=== PATIENT | female | born 1995 | race Caucasian/White ===

== ENCOUNTER 2018-09-22 08:49 | Emergency (ER) | payer MEDICAID ==
[2018-09-22] MEDS ORDERED: Ketorolac 30 MG/ML SDV ONE (09:17)
[2018-09-22] MEDS ORDERED: Ketorolac 60 MG/2 ML SDV IM SCH (09:30)
--- NOTE | 2018-09-22 10:07 | EDM.PDOC ---
ED HPI GENERAL MEDICAL PROBLEM - General Chief Complaint: Upper Extremity Injury/Pain Stated Complaint: toothache Time Seen by Provider: 09/22/18 08:55 Source of Information: Reports: Patient, RN History Limitations: Reports: No Limitations - History of Present Illness INITIAL COMMENTS - FREE TEXT/NARRATIVE: 23 yr female presents to ER with dental pain and neck pain. States she has seen the dentist and needs to schedule another appointment to have the wisdom teeth extracted. No swelling noted to gum and gum is pink in color. States she took pain medicine during night and today and has been using a heating pad for this. Treatments [employer]: Reports: Acetaminophen Left Jaw Pain Score (Numeric/FACES): 7 - Related Data Allergies Allergy/AdvReac Type Severity Reaction Status Date / Time No Known Allergies Allergy Verified 09/22/18 08:58 Home Meds: Home Meds NK [No Known Home Meds] 09/22/18 [History] Review of Systems - Review of Systems Review Of Systems: See Below Constitutional: Reports: No Symptoms Eyes: Reports: No Symptoms ED EXAM, GENERAL - Physical Exam Exam: See Below Exam Limited By: No Limitations General Appearance: Alert, No Apparent Distress Ears: Hearing Grossly Normal Nose: Normal Inspection Throat/Mouth: Normal Voice, No Airway Compromise Head: Atraumatic, Normocephalic. No: Facial Swelling Neck: Supple, Non-Tender, Full Range of Motion Respiratory/Chest: No Respiratory Distress Neurological: Alert, Oriented, Normal Cognition Psychiatric: Normal Affect, Normal Mood, Tearful Skin Exam: Warm, Dry, Normal Color Lymphatic: No Adenopathy Course - Vital Signs Last Recorded V/S: Last Vital Signs Temp 99 F 09/22/18 09:39 Pulse 83 09/22/18 09:39 Resp 16 09/22/18 09:39 BP 135/83 09/22/18 09:39 Pulse Ox 100 09/22/18 09:39 - Orders/Labs/Meds Meds: Medications Discontinued Medications Generic Name Dose Route Start Last Admin Trade Name Freq PRN Reason Stop Dose Admin Ketorolac Tromethamine Confirm 09/22/18 09:17 09/22/18 09:26 Toradol Administered 09/22/18 09:18 30 mg Dose Administration 30 mg .ROUTE .STK-MED ONE Ketorolac Tromethamine 30 mg 09/22/18 09:30 Toradol IM 09/27/18 09:[address] [facility] Departure - Departure Time of Disposition: 09:30 Disposition: Home, Self-Care 01 Condition: Good Clinical Impression: Pain, dental - Discharge Information Instructions: Acetaminophen; Hydrocodone tablets or capsules, Ibuprofen tablets and capsules, Acetaminophen tablets or caplets Referrals: PCP,None [Primary Care Provider] - Forms: ED Department Discharge Care Plan Goals: Instructed to alternate Ibuprofen 600mg, Take at 8, 2am and 10pm if pain not controlled and Take tylenol 500mg 3 x day at 10a, 4pm, 12 midnight. Take hydrocodone/APAP 5/325 one tablet every 8 hours as needed for pain. Use heat or cold, whichever feels best to area 20 minutes of an hour every 3 to 4 hours. When making an appointment with oral surgeon, ask if they want you on antibiotics first, prior to appointment You have had a ketorlac injection so wait until bedtime before using motrin or ibuprofen Make appointment with oral surgeon to have teeth removed. - Assessment/Plan Plan: Acute dental pain: Recommend follow-up with dentist of choice. No acute erythema noted to gum, no swelling noted. Bottom molar starting to show through gum. Recommend to continue with good dental hygiene. Recommend to continue with alternating Tylenol and Ibuprofen for relief of pain. Rx for Vicoden given. Toradol IM given for relief of pain. May use/alternate heat and cold to jaw for comfort as needed. Follow-up with dentist/oral surgeon.
== END 2018-09-22 09:30 | disposition home or self-care (01) ==
LOC: LB.ED 08:49
DX: K08.89 Other specified disorders of teeth and supporting structures (principal)
CPT/HCPCS: 99282; J1885

== ENCOUNTER 2018-11-05 10:58 | Emergency (ER) | payer MEDICAID ==
--- NOTE | 2018-11-05 11:26 | EDM.PDOC ---
ED HPI GENERAL MEDICAL PROBLEM - General Stated Complaint: TOOTH PAIN Time Seen by Provider: 11/05/18 11:10 Source of Information: Reports: Patient History Limitations: Reports: No Limitations - History of Present Illness INITIAL COMMENTS - FREE TEXT/NARRATIVE: Pt is sitting in the emergency room very tearful and upset. She claims she has pain in her left upper wisdom tooth for several months. She was seen by her dentist 3 months and referred out to a different dentist , who again has referred her to another one. She claims she has had pain for more then 3 months now and she is in pain and needs pain meds now. ( pt is very demanding).When asked what she has been on for pain meds in the past 3 months she says nothing. He uses OTC ambusol for pain. When asked how is her pain different today then other days, what did she do. Pt gets upset. No swelling of the face. No fever or chills. Severity: Severe Improves with: Reports: None Worsens with: Reports: None Associated Symptoms: Denies: Confusion, Chest Pain, Cough, Diaphoresis, Fever/ Chills, Headaches, Nausea/Vomiting, Rash, Seizure, Shortness of Breath, Syncope , Weakness - Related Data Allergies Allergy/AdvReac Type Severity Reaction Status Date / Time No Known Allergies Allergy Verified 09/22/18 08:58 Home Meds: Home Meds NK [No Known Home Meds] 09/22/18 [History] ED ROS GENERAL - Review of Systems Review Of Systems: See Below Constitutional: Denies: Fever, Chills HEENT: Reports: Dental Pain. Denies: Nose Pain, Throat Pain, Vision Change Respiratory: Denies: Shortness of Breath, Pleuritic Chest Pain, Cough, Sputum Cardiovascular: Denies: Chest Pain, Lightheadedness GI/Abdominal: Denies: Abdominal Pain, Nausea, Vomiting : Denies: Dysuria, Frequency Musculoskeletal: Denies: Joint Pain, Joint Swelling Skin: Denies: Bruising, Pruritis, Rash Neurological: Denies: Confusion, Dizziness, Headache, Numbness, Tingling Psychiatric: Denies: Agitation, Anxiety, Confusion ED EXAM, GENERAL - Physical Exam Exam: See Below Exam Limited By: No Limitations General Appearance: Alert, WD/WN, Other (crying out loud and tearful) Eye Exam: Bilateral Eye: EOMI, PERRL Ears: Normal External Exam, Normal Canal, Hearing Grossly Normal, Normal TMs Nose: Normal Inspection, Normal Mucosa, No Blood Throat/Mouth: Other (Oral Exam: all the teeth appear normal. There is no gingivitis or gingival inflammation. there is a partially erupted tooth in the left upper quadrant , posterior to the molar. There is no erythema or mucosal swelling.) Head: Atraumatic, Normocephalic Neck: Normal Inspection, Supple, Non-Tender, Full Range of Motion Respiratory/Chest: No Respiratory Distress, Lungs Clear, Normal Breath Sounds, No Accessory Muscle Use, Chest Non-Tender Cardiovascular: Normal Peripheral Pulses, Regular Rate, Rhythm, No Edema, No Gallop, No JVD, No Murmur, No Rub Course - Vital Signs Text/Narrative:: Apparently patient is here crying and upset about her tooth ache. there is no facial selling. There is no gingival inflammation in the area of the pain. The tooth is not appearing to have caries or root exposure. I do not see any acute cause of her severe pain. Pt gets upset to answer simple questions like ,How long have you had pain? Do you have a dentist? Have you called your dentist?. these are the questions normally asked in the medical visit. She refuses to have Blood drawn for CBC. Patient is upset about something hard to understand. She says she will not get blood work for her tooth pain and signed AMA and went to [facility]. Departure - Departure Time of Disposition: 11:30 Disposition: Against Medical Advice 07 Clinical Impression: Pain, dental - Discharge Information *PRESCRIPTION DRUG MONITORING PROGRAM REVIEWED*: Not Applicable *COPY OF PRESCRIPTION DRUG MONITORING REPORT IN PATIENT BREEZY: Not Applicable Referrals: PCP,None [Primary Care Provider] - - Problem List & Annotations (1) Pain, dental SNOMED Code(s): 46220607 Code(s): K08.89 - OTHER SPECIFIED DISORDERS OF TEETH AND SUPPORTING STRUCTURES Status: Acute Current Visit: Yes - Problem List Review Problem List Initiated/Reviewed/Updated: Yes - Assessment/Plan Assessment:: dental pain Plan: Apparently patient is here crying and upset about her tooth ache. there is no facial selling. There is no gingival inflammation in the area of the pain. The tooth is not appearing to have caries or root exposure. I do not see any acute cause of her severe pain. Pt gets upset to answer simple questions like ,How long have you had pain? Do you have a dentist? Have you called your dentist?. these are the questions normally asked in the medical visit. She refuses to have Blood drawn for CBC. Patient is upset about something hard to understand. She says she will not get blood work for her tooth pain and signed AMA and went to [facility].
== END 2018-11-05 11:20 | disposition left against medical advice (07) ==
LOC: LB.ED 10:58
DX: K08.89 Other specified disorders of teeth and supporting structures (principal)
CPT/HCPCS: 99282

== ENCOUNTER 2023-04-27 07:54 | Emergency (ER) | payer MEDICAID | END 2023-04-27 08:36 | disposition home or self-care (01) | LOC: LB.ED 07:54 | DX: M79.2 Neuralgia and neuritis, unspecified (principal); H61.22 Impacted cerumen, left ear; F17.210 Nicotine dependence, cigarettes, uncomplicated | CPT/HCPCS: 99283 ==

== ENCOUNTER 2023-09-10 09:39 | Emergency (ER) | payer MEDICAID ==
[2023-09-10] MEDS: methylPREDNISolone Sodium Succinate 125 MG/2 ML SDV IM ONE (10:29)
== END 2023-09-10 10:34 | disposition home or self-care (01) ==
LOC: LB.ED 09:39
DX: L23.7 Allergic contact dermatitis due to plants, except food (principal); Z87.891 Personal history of nicotine dependence
CPT/HCPCS: 96372; 99283; J2919

== ENCOUNTER 2023-11-15 03:29 | Emergency (ER) | payer MEDICAID, OTHER ==
[2023-11-15] MEDS ORDERED: Sodium Chloride 0.9% 10 ML Syringe FLUSH PRN (03:43)
[2023-11-15 03:56] LABS: BASOPHILS ABSOLUTE AUTO 0.04 K/uL (0.02-0.10); BASOPHILS PERCENT AUTO 0.5 % (0.0-0.5); EOSINOPHILS ABSOLUTE AUTO 0.14 K/uL (0.04-0.40); EOSINOPHILS PERCENT AUTO 1.7 % (1.0-5.0); HEMOGLOBIN 13.4 g/dL (11.5-16.5); LYMPHOCYTES ABSOLUTE AUTO 2.79 K/uL (1.50-4.00); LYMPHOCYTES PERCENT AUTO 33.8 % (20.0-40.0); MEAN CORPUSCULAR HEMOGLOBIN 31.2 pg (27.0-32.0); MEAN CORPUSCULAR HGB CONC 34.4 g/dL (31.0-35.0); MEAN CORPUSCULAR VOLUME 91 fL (76-96); MEAN PLATELET VOLUME 9.9 fL (6.0-10.0); MONOCYTES ABSOLUTE AUTO 0.99 K/uL (0.20-0.80); PLATELET COUNT,PLT 270 K/uL (150-500); RED BLOOD CELL COUNT 4.29 M/uL (3.80-5.80); RED CELL DISTRIBUTION WIDTH 12.9 % (11.0-16.0); WHITE BLOOD CELL COUNT,WBC 8.3 K/uL (4.0-11.0)
[2023-11-15 04:06] LABS: ALBUMIN 3.6 g/dL (3.4-5.0); ANION GAP 15.5 mmol/L (5.0-15.0); BILIRUBIN TOTAL 0.2 mg/dL (0.0-1.0); BUN/CREATININE RATIO 17.1 (6-25); CALCIUM 8.6 mg/dL (8.5-10.1); CARBON DIOXIDE,CO2 21.4 mmol/L (21.0-32.0); CREATININE 0.82 mg/dL (0.55-1.02); EST CRCL DRUG DOSING (CG) 132.89 mL/min; POTASSIUM,K 3.9 mmol/L (3.5-5.1); PROTEIN TOTAL,TP 7.3 g/dL (6.4-8.2)
[2023-11-15 04:39] LABS: AMPHETAMINES SCREEN, URINE NEGATIVE (NEGATIVE); BARBITURATE SCREEN,URINE NEGATIVE (NEGATIVE); BENZODIAZEPINES SCREEN,URINE NEGATIVE (NEGATIVE); METHADONE SCREEN, URINE NEGATIVE (NEGATIVE); METHAMPHETAMINES SCREEN, URINE NEGATIVE (NEGATIVE); OXYCODONE SCREEN,URINE NEGATIVE (NEGATIVE); THC SCREEN,URINE 50 NG/ML NEGATIVE (NEGATIVE)
== END 2023-11-15 07:27 | disposition home or self-care (01) ==
LOC: LB.ED 03:29
DX: M25.531 Pain in right wrist (principal); M25.561 Pain in right knee; F10.129 Alcohol abuse with intoxication, unspecified; V89.2XXA Person injured in unspecified motor-vehicle accident, traffic, initial encounter
CPT/HCPCS: 36415; 70450; 72125; 73130-RT; 73562-RT; 80053; 80307; 85025; 99284